=== PATIENT | female | born 1995 | race Caucasian/White ===

== ENCOUNTER 2018-05-24 13:44 | Emergency (ER) | payer MEDICAID ==
[~2018-05-24] VITALS: Ht 152.4 cm; Wt 47.1 kg
[~2018-05-24 13:44] MED LIST: BUPR1FIL5 SL
[2018-05-24] MEDS ORDERED: IBUPROFEN 200 MG TABLET ONE (14:01)
[2018-05-24] MEDS ORDERED: SODIUM CHLORIDE FLUSH 10ML SYR IVF ONE (14:30)
[2018-05-24] MEDS ORDERED: IBUPROFEN 200 MG TABLET PO ONE (14:30)
[2018-05-24] MEDS ORDERED: SODIUM CHLORIDE 0.9% 1,000ML IVBOLUS ONE ×2 (14:30→15:30)
[2018-05-24 14:33] LABS: MEAN CORPUSCULAR HEMOGLOBIN 31.8 pg (27.0-34.8); MEAN CORPUSCULAR HGB CONC 33.7 g/dL (32.4-35.8); MEAN CORPUSCULAR VOLUME 94.2 fL (80-100); MEAN PLATELET VOLUME 9.3 fL (7.4-10.4); PLATELET COUNT 127 x10^3/uL (130-400); RED BLOOD COUNT 4.01 x10^6/uL (3.82-5.3); RED CELL DISTRIBUTION WIDTH 13.5 % (9.6-15.2)
[2018-05-24 14:36] LABS: RAPID INFLUENZA A Negative (Negative); RAPID INFLUENZA B Negative (Negative)
[2018-05-24 14:46] LABS: ALANINE AMINOTRANSFERASE 15 U/L (12-78); ALBUMIN 3.1 g/dL (3.4-5.0); ANION GAP 9 mmol/L (5-15); CALCIUM 8.5 mg/dL (8.5-10.1); CHLORIDE 102 mmol/L (98-107)
[2018-05-24 14:49] LABS: ALKALINE PHOSPHATASE 70 U/L (45-117); BILIRUBIN,TOTAL 0.5 mg/dL (0.2-1.0); TOTAL PROTEIN 7.8 g/dL (6.4-8.2)
[2018-05-24 14:57] LABS: CULTURE INDICATED? YES; MICROSCOPIC INDICATED
[2018-05-24 15:04] LABS: BASOPHILS % (AUTO) 0 % (0-1); EOSINOPHILS % (AUTO) 0 % (1-7); LYMPHOCYTES # (AUTO) 1.73 x10^3/uL (1-3.4); LYMPHOCYTES % (AUTO) 12 % (22-44); MD SCAN; MONOCYTES # (AUTO) 1.82 x10^3/uL (0.2-0.8); MONOCYTES % (AUTO) 13 % (2-9); NEUTROPHILS # (AUTO) 10.39 x10^3/uL (1.8-6.8); NEUTROPHILS % (AUTO) 75 % (42-75)
[2018-05-24] MEDS ORDERED: KETOROLAC 30 MG/1 ML IVPush ONE (15:30)
[2018-05-24] MEDS ORDERED: CEFTRIAXONE 1,000 MG in SODIUM CHLORIDE 0.9% 50 ML IV ONE (15:30)
[2018-05-24] MEDS ORDERED: CEFTRIAXONE PMX 1GM/50ML 50 ML ONE (15:47)
[2018-05-24] MEDS ORDERED: KETOROLAC 30 MG/1 ML ONE (15:47)
[2018-05-24 17:46] VITALS: BP 120/66
== END 2018-05-24 17:48 | disposition home or self-care (01) ==
LOC: ED 16:16
DX: N10 Acute pyelonephritis (principal); D72.829 Elevated white blood cell count, unspecified; R05 Cough
CPT/HCPCS: 36415; 71046; 76770; 76830; 80053; 81001; 83605; 84145; 84703; 85025; 87040; 87077; 87086; 87400; 96365; 96375; 99285; J0696; J1885; J7030; 87186

== ENCOUNTER 2018-12-07 19:54 | Emergency (ER) | payer MEDICAID ==
[~2018-12-07] VITALS: Ht 157.5 cm; Wt 48.5 kg
[2018-12-07 20:38] LABS: BASOPHILS # (AUTO) 0.05 x10^3/uL (0-0.1); BASOPHILS % (AUTO) 0 % (0-1); EOSINOPHILS # (AUTO) 0.09 x10^3/uL (0-0.4); EOSINOPHILS % (AUTO) 1 % (1-7); LYMPHOCYTES # (AUTO) 3.25 x10^3/uL (1-3.4); LYMPHOCYTES % (AUTO) 26 % (22-44); MD NO; MEAN CORPUSCULAR HEMOGLOBIN 32.9 pg (27.0-34.8); MEAN CORPUSCULAR HGB CONC 33.9 g/dL (32.4-35.8); MEAN CORPUSCULAR VOLUME 97.2 fL (80-100); MEAN PLATELET VOLUME 8.8 fL (7.4-10.4); MONOCYTES # (AUTO) 1.21 x10^3/uL (0.2-0.8); MONOCYTES % (AUTO) 10 % (2-9); NEUTROPHILS % (AUTO) 63 % (42-75); PLATELET COUNT 217 x10^3/uL (130-400); RED BLOOD COUNT 4.44 x10^6/uL (3.82-5.3); RED CELL DISTRIBUTION WIDTH 12.8 % (9.6-15.2)
[2018-12-07 20:48] LABS: ANION GAP 8 mmol/L (5-15); CALCIUM 9.5 mg/dL (8.5-10.1); CHLORIDE 107 mmol/L (98-107); CREATININE 0.71 mg/dL (0.55-1.02)
[2018-12-07 20:59] LABS: CULTURE INDICATED? YES; MICROSCOPIC INDICATED
--- NOTE | 2018-12-07 21:48 | NUR ---
pt to room from lobby
[2018-12-07 21:56] VITALS: BP 134/78
--- NOTE | 2018-12-07 21:57 | NUR ---
STATES 7 WEEKS . "I BELIEVE I HAVE A UTI." RLQ ABD PAINx2 DAYS W/ BURNING W/ URINATION. DENIES VAGINAL DISCHARGE/BLEEDING. PER TRIAGE NOTE erp at bed side given poc with result of test
--- NOTE | 2018-12-07 21:59 | NUR ---
RECEIVED REPORT FROM [facility] TO ASSUME CARE OF PT. DR. COCHRAN WAS AT BS FOR EVAL/ PT. TO RECEIVE ABD THEN D/C.
[2018-12-07] MEDS ORDERED: CEFDINIR 300 MG CAPSULE PO ONE (22:00)
[2018-12-07] MEDS ORDERED: CEFDINIR 300 MG CAPSULE ONE (22:15)
--- NOTE | 2018-12-07 22:16 | NUR ---
THIS RN ENTERED ROOM AT THIS TIME TO ADMIN MED AND GO OVER D/C PAPERS. PT. NOT FOUND IN ROOM AND GOWN AND MONITORS ON [facility].
--- NOTE | 2018-12-07 22:22 | NUR ---
PT. BACK IN ROOM AND MEDICATED PER NOV. PT. AMBULATORY TO D/C DESK WITH STEADY GAIT. MARIE.
== END 2018-12-07 22:25 | disposition home or self-care (01) ==
LOC: ED 22:20
DX: O23.11 Infections of bladder in pregnancy, first trimester (principal); O21.0 Mild hyperemesis gravidarum; R31.9 Hematuria, unspecified; Z3A.12 12 weeks gestation of pregnancy
CPT/HCPCS: 36415; 76801; 80048; 81001; 82040; 84702; 85025; 87086; 99284

== ENCOUNTER 2019-04-03 10:03 | Outpatient (CLI) | payer MEDICAID ==
[~2019-04-03] VITALS: Ht 154.9 cm; Wt 54.5 kg
[2019-04-03 10:57] LABS: MICROSCOPIC INDICATED
[2019-04-03 11:00] LABS: AMPHETAMINE SCREEN, URINE Negative (Negative); BARBITURATE SCREEN, URINE Negative (Negative); BENZODIAZEPINE SCREEN, URINE Negative (Negative); CANNABINOID SCREEN, URINE Negative (Negative); COCAINE SCREEN, URINE Negative (Negative); METHADONE SCREEN, URINE Negative (Negative); OPIATE SCREEN, URINE Negative (Negative)
[2019-04-03 11:15] VITALS: BP 104/54
[2019-04-03] MEDS ORDERED: PREN1TAB60 PO (11:32)
== END 2019-04-03 11:38 | disposition home or self-care (01) ==
LOC: LDOP 10:03
PROVIDERS: ATTEND Obstetrics & Gynecology
DX: O42.912 Preterm premature rupture of membranes, unspecified as to length of time between rupture and onset of labor, second trimester (principal); Z3A.24 24 weeks gestation of pregnancy
CPT/HCPCS: 80307; 81001; 87086; 99201; G0463

== ENCOUNTER 2019-07-02 18:52 | Outpatient (CLI) | payer MEDICAID ==
[~2019-07-02] VITALS: Ht 154.9 cm; Wt 57.7 kg
[~2019-07-02 18:52] MED LIST changes: +PREN1TAB60 PO
[2019-07-02 19:08] VITALS: BP 123/78
[2019-07-02] MEDS ORDERED: subutex SL (19:49)
== END 2019-07-02 20:05 | disposition home or self-care (01) ==
LOC: LDOP 18:52
PROVIDERS: ATTEND Obstetrics & Gynecology
DX: O36.8130 Decreased fetal movements, third trimester, not applicable or unspecified (principal); Z3A.37 37 weeks gestation of pregnancy
CPT/HCPCS: 59025; 99211; G0463

== ENCOUNTER 2020-06-18 13:25 | Emergency (ER) | payer MEDICAID ==
[~2020-06-18] VITALS: Ht 152.4 cm; Wt 45.6 kg
[~2020-06-18 13:25] MED LIST changes: +subutex SL
[2020-06-18 13:32] VITALS: BP 108/67
--- NOTE | 2020-06-18 13:51 | NUR ---
THIS RN AT BEDSIDE DURING MD EXAM.
--- NOTE | 2020-06-18 14:25 | NUR ---
ALL RESULTS ARE BACK AT THIS TIME. CHART UP FOR RECHECK.
== END 2020-06-18 15:36 | disposition home or self-care (01) ==
LOC: ED 15:19
DX: L05.91 Pilonidal cyst without abscess (principal)
CPT/HCPCS: 72220; 99283

== ENCOUNTER 2020-11-01 15:52 | Emergency (ER) | payer MEDICAID ==
[~2020-11-01] VITALS: Ht 152.4 cm; Wt 46.0 kg
--- NOTE | 2020-11-01 16:00 | NUR ---
first call for triage @ 1600 no answer
--- NOTE | 2020-11-01 16:21 | NUR ---
PT C/O ABD CRAMPING THAT STARTED YESTERDAY. PT HAS ALSO HAD LIGHT PINK SPOTTING. PT TOOK A HOME TEST THAT SHOWED SHE WAS . PT SAYS SHE WOULD BE ABOUT 8 WEEKS ALONG.
--- NOTE | 2020-11-01 17:21 | NUR ---
PT OFF THE FLOOR TO ULTRASOUND
[2020-11-01 17:39] LABS: MICROSCOPIC NOT IND
[2020-11-01 18:31] LABS: BASOPHILS % (AUTO) 1 % (0-1); EOSINOPHILS % (AUTO) 1 % (1-7); LYMPHOCYTES % (AUTO) 31 % (22-44); MEAN CORPUSCULAR HEMOGLOBIN 32.8 pg (27.0-34.8); MEAN CORPUSCULAR HGB CONC 33.6 g/dL (32.4-35.8); MEAN PLATELET VOLUME 8.8 fL (7.4-10.4); MONOCYTES % (AUTO) 12 % (2-9); NEUTROPHILS % (AUTO) 56 % (42-75); PLATELET COUNT 226 x10^3/uL (130-400); RED BLOOD COUNT 4.25 x10^6/uL (3.82-5.3); RED CELL DISTRIBUTION WIDTH 12.4 % (9.6-15.2)
[2020-11-01 18:33] LABS: MD NO
[2020-11-01 18:42] LABS: ALBUMIN 3.7 g/dL (3.4-5.0); ANION GAP 8 mmol/L (5-15); CHLORIDE 107 mmol/L (98-107)
--- NOTE | 2020-11-01 18:46 | NUR ---
REPORT FROM GERMAIN RN, PT CARE TRANSFERRED AT THIS TIME. PT RESTING ON GURICHAR, NAD, APPEARS COMFORTABLE, NO CHANGE IN CONDITION, BED IN LOWEST, RAILS ENGAGED, CALL LIGHT ON LAP, WCTM. WAITING FOR LAB RESULTS.
[2020-11-01 19:00] LABS: ALANINE AMINOTRANSFERASE 35 U/L (12-78); ALKALINE PHOSPHATASE 67 U/L (45-117); BILIRUBIN,TOTAL 0.2 mg/dL (0.2-1.0); TOTAL PROTEIN 7.9 g/dL (6.4-8.2)
--- NOTE | 2020-11-01 19:24 | NUR ---
provider Archana BERRY at for eval and poc. pt nad, resting on gurlilian, vss, wctm.
[2020-11-01 19:26] VITALS: BP 116/73
--- NOTE | 2020-11-01 19:50 | NUR ---
Patient given discharge instructions and they have confirmed that they understand the instructions. Patient ambulatory with steady gait. nad, denies additional needs, all questions answered appropriately. no personal belongings left in room after dc
== END 2020-11-01 19:58 | disposition home or self-care (01) ==
LOC: ED 19:52
DX: O20.0 Threatened abortion (principal); Z87.891 Personal history of nicotine dependence; Z3A.08 8 weeks gestation of pregnancy
CPT/HCPCS: 36415; 76801; 80053; 81003; 84702; 85025; 86901; 99284